=== PATIENT | male | born 1965 | race Caucasian/White ===

== ENCOUNTER → 2016-09-10 | Outpatient (CLI) | payer BC ==
[2016-08-19 11:56] VITALS: BP 173/91
[~2016-09-10] MED LIST: DOCU-27 PO; GLIM2TAB2 PO; IBUP-1060 PO; LISI1TAB3 PO; METF10002 PO; ONDA4TAB10 SL; OXYC-323 PO; SIMV20TA3 PO; TRAM50TA PO
--- NOTE | 2016-09-10 15:43 | RAD ---
PROCEDURE MR of the right shoulder HISTORY Right shoulder pain for 2 months. History of rotator cuff repair. TECHNIQUE Standard multiplanar sequences are obtained. COMPARISON None FINDINGS Acromioclavicular joint demonstrates mild degenerative arthrosis with small undersurface osteophytes. Surgical screws at the humeral head compatible with prior rotator cuff repair. Complete full-thickness recurrent rupture of the supraspinatus and infraspinatus tendons, to nearly the level of the superior labrum about 4 centimeters. Moderate muscle volume loss with fatty infiltration. High-grade subscapularis tendon tear. Biceps tendinosis with partial tearing and medial subluxation, perched over the lesser tuberosity. Small joint effusion. Limited labrum examination due to motion degradation with evidence of labral degeneration. There is some heterogeneity at the anteroinferior through posteroinferior labrum suspicious for a tear. Mild degenerative signal at the superior labrum. No bone lesion or acute fracture. No acute soft tissue injury. IMPRESSION 1. Massive rotator cuff tear. Complete supraspinatus and infraspinatus tendon rupture, and high-grade subscapularis tendon tear. Severe retraction and moderate atrophy. 2. Tear of the anteroinferior through posteroinferior labrum. 3. Partial biceps tendon tearing with medial subluxation. Electronically signed by: Chicho Young MD (Sep 10, 2016 15:41:53)
== END | disposition home or self-care (01) ==
LOC: MRI 14:53
PROVIDERS: ATTEND Orthopaedic Surgery Sports Medicine
DX: M19.011 Primary osteoarthritis, right shoulder (principal); M75.121 Complete rotator cuff tear or rupture of right shoulder, not specified as traumatic; M25.711 Osteophyte, right shoulder; M62.89 Other specified disorders of muscle; M25.411 Effusion, right shoulder; S46.811A Strain of other muscles, fascia and tendons at shoulder and upper arm level, right arm, initial encounter; X58.XXXA Exposure to other specified factors, initial encounter; Y93.89 Activity, other specified; Y92.89 Other specified places as the place of occurrence of the external cause; Y99.8 Other external cause status
CPT/HCPCS: 73221